=== PATIENT | male | born 1950 | race Caucasian/White ===

== ENCOUNTER 2016-12-20 16:52 | Emergency (ER) | payer OTHER ==
[~2016-12-20] VITALS: Wt 104.0 kg
--- NOTE | 2016-12-20 19:26 | RADRPT ---
PROCEDURE: Left hand series CLINICAL INDICATION: Left hand pain. Trauma to the fifth finger TECHNIQUE: AP, oblique, and lateral views of the left hand were obtained. COMPARISON: None FINDINGS: A questionable nondisplaced fracture of the base of the fifth distal phalanx is seen. No other frac ture is suspected. No dislocation is seen.. The osseous structures are well mineralized. Severe d egenerative changes are seen involving the fifth DIP joint. The remaining articular surfaces are no rmal. No soft tissue abnormalities are seen. IMPRESSION: 1. Questionable nondisplaced fracture of the base of the fifth distal phalanx. 2. 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 RPTAT: HPNM Physician Britney Date Time Electronically viewed and signed by Anurag Portillo Physician on 12/20/2016 19:26 /
[2016-12-20] MEDS ORDERED: DIPHTH/TET/ACEL PERTUSS (ADULT) 0.5 ML VIAL IM* ONE (19:30)
[2016-12-20] MEDS ORDERED: IBUPROFEN 800 MG TAB PO ONE (19:30)
[2016-12-20] MEDS ORDERED: HYDR-902 PO (20:20)
[2016-12-20 20:28] VITALS: BP 132/78; PULSE 66; RESP 20; TEMP 98
--- NOTE | 2016-12-20 20:46 | ERD ---
ER Documentation Chief Complaint Date/Time DATE: 12/20/16 TIME: 20:42 Chief Complaint trip and fall, c/o 5th digit, l. hand HPI Patient is a 66-year-old male with depression who presents with left-sided finger pain. He has left-sided fifth finger pain after he fell forward in his driveway. He did not hit his head and did not lose consciousness. He has an abrasion to the finger which is slightly oozing blood at this time. He is unsure about his tetanus vaccination. He is left-handed. There is a deformity of the left fifth digit and he has pain with range of motion. ROS All systems reviewed and are negative except as per history of present illness. Medications Home Meds Active Scripts Hydrocodone/Acetaminophen ([place] 10-325 Tablet) 1 Each Tablet, 1 TAB PO Q6H Y for PAIN, #12 TAB Prov:SONIA MCCORMICK MD 12/20/16 Allergies Allergies: Coded Allergies: No Known Allergy (Unverified , 12/20/16) PMhx/Soc Medical and Surgical Hx: pt denies Surgical Hx Hx Miscellaneous Medical Probl: Yes (high cholesterol) Hx Alcohol Use: Yes (occassional) Hx Substance Use: No Hx Tobacco Use: No Smoking Status: Never smoker FmHx Family History: No diabetes Physical Exam Vitals Vital Signs Date Time Temp Pulse Resp B/P Pulse Ox O2 Delivery O2 Flow Rate FiO2 12/20/16 20:28 98.0 66 20 132/78 96 12/20/16 16:57 98.0 92 20 151/97 96 Physical Exam Const: No acute distress Head: Atraumatic Eyes: Normal Conjunctiva ENT: Normal External Ears, Nose and Mouth. Neck: Full range of motion..~ No meningismus. Resp: Clear to auscultation bilaterally Cardio: Regular rate and rhythm, no murmurs Abd: Soft, non tender, non distended. Normal bowel sounds Skin: Oozing from the nailbed of the left fifth finger Back: No midline or flank tenderness Ext: Obvious distal fifth digit dislocation with dusky skin color and poor cap refill Neur: Awake and alert Psych: Normal Mood and Affect Results 24 hrs Current Medications Medications (Trade) Dose Ordered Sig/Manuela Route PRN Reason Start Time Stop Time Status Last Admin Dose Admin Ibuprofen (Motrin) 800 mg ONCE ONCE PO 12/20/16 19:30 12/20/16 19:31 DC 12/20/16 19:10 Diphtheria/ Tetanus/Acell Pertussis (Adacel) 0.5 ml ONCE ONCE IM* 12/20/16 19:30 12/20/16 19:31 DC 12/20/16 19:11 Procedures/MDM Reduction by me: Anesthesia: None used due to possible vascular compromise Location: Left fifth finger Technique: Gentle traction and manipulation Results: Religious of normal anatomic positioning Neurovascularly intact post procedure. Splint Note Type: Metal splint Location: Left fifth finger Indication: Finger dislocation, possible mallet finger, and fracture Splint Assessment: Neurovascularly intact post splint placement with good fit. X-ray of the left hand shows possible distal left fifth finger fracture per radiology. Patient is a 66-year-old male who presents with a left fifth finger fracture and dislocation. I did reduce the dislocation at the bedside quickly due to the fact that I was concerned for possible vascular compromise. Post reduction he had better skin color. X-ray shows a possible fracture per radiology and a metal splint was applied. I did use Dermabond to stop the bleeding at the nail bed. There is no open laceration at this time. I believe outpatient management is appropriate. The patient will need to follow-up closely with his primary doctor and I have also given him information for Dr. Clayton from orthopedic surgery. He can return for any worsening symptoms. He is left- handed. He will be given a prescription for [place]. Departure Diagnosis: Primary Impression: Finger dislocation Encounter type: initial encounter Qualified Code: S63.259A - Finger dislocation, initial encounter Additional Impressions: Finger fracture Encounter type: initial encounter Finger: little finger Fracture type: closed Phalanx: distal Fracture alignment: displaced Laterality: left Qualified Code: S62.637A - Closed displaced fracture of distal phalanx of left little finger, initial encounter Finger injury Encounter type: initial encounter Laterality: left Qualified Code: S69.92XA - Finger injury, left, initial encounter Condition: Fair Patient Instructions: Finger and Toe Fractures (Broken Finger or Toe), Dislocated Finger Referrals: JOE CLAYTON MD Additional Instructions: SPECIALIST: YOU HAVE A MEDICAL CONDITION WHICH REQUIRES YOU TO SEE A SPECIALIST WITHIN THE NEXT 1-2 DAYS. PLEASE FOLLOW UP WITH YOUR PRIMARY PHYSICIAN FOR REFFERAL.IF YOU DO NOT HAVE A PRIMARY CARE PHYSICIAN AND/OR YOU CAN NOT AFFORD TO SEE A PHYSICIAN THE FOLLOWING RESOURCES HAVE BEEN SUPPLIED TO YOU. IT IS YOUR RESPONSIBILITY TO BE SEEN BY THE SPECIALIST SONIA MCCORMICK MD Dec 20, 2016 20:46
== END 2016-12-20 20:28 | disposition home or self-care (01) ==
LOC: FTE 16:52
DX: S63.257A Unspecified dislocation of left little finger, initial encounter (principal); S62.637A Displaced fracture of distal phalanx of left little finger, initial encounter for closed fracture; W01.0XXA Fall on same level from slipping, tripping and stumbling without subsequent striking against object, initial encounter; Y92.9 Unspecified place or not applicable; Z23 Encounter for immunization
CPT/HCPCS: 90471; 90715